=== PATIENT | female | born 1980 | race Caucasian/White ===

== ENCOUNTER 2020-11-18 11:00 | Outpatient (RCR) | payer OTHER, SELFPAY ==
[2020-09-09 12:38] VITALS: BMI 24.7
[2020-09-09 12:41] VITALS: BMI 24.7
[2020-11-18 11:08] VITALS: BMI 24.7
== END 2020-11-30 10:27 | disposition home or self-care (01) ==
LOC: ANHDMC 11:00
PROVIDERS: PCP Emergency Medicine; Visit Provider Emergency Medicine
DX: E11.9 Type 2 diabetes mellitus without complications (principal); Z71.3 Dietary counseling and surveillance; Z71.89 Other specified counseling
CPT/HCPCS: 97802; 97803; G0108

== ENCOUNTER 2022-04-06 08:15 | Outpatient (CLI) | payer OTHER, SELFPAY ==
--- NOTE | ~2022-04-06 | US_ITS ---
Ultrasound of the Abdominal Aorta INDICATION: Circulatory system disease, aortic aneurysm TECHNIQUE: Grayscale, color Doppler, and pulsed Doppler images of the aorta and common iliac arteries were obtained. COMPARISON: None FINDINGS: Maximum vascular dimensions are as follows: Proximal aorta: 2.0 cm Mid aorta: 1.5 cm Distal aorta: 1.5 cm Right common iliac artery: 1.0 cm Left common iliac artery: 0.8 cm There is no evidence of abdominal aortic aneurysm. IMPRESSION: No abdominal aortic aneurysm. Reviewed, dictated and finalized at location [facility]
== END 2022-04-06 08:16 | disposition home or self-care (01) ==
PROVIDERS: PCP Emergency Medicine; Visit Provider Emergency Medicine
DX: I71.40 Abdominal aortic aneurysm, without rupture, unspecified (principal); Z82.49 Family history of ischemic heart disease and other diseases of the circulatory system
CPT/HCPCS: 76775

== ENCOUNTER 2022-06-02 02:41 | Day surgery (SDC) | payer OTHER, SELFPAY ==
[2022-05-18 14:51] VITALS: BMI 25.1
[2022-06-02 09:04] VITALS: BP 151/102; PULSE 92; RESP 18; TEMP 36.4; O2SAT 100
[2022-06-02] MEDS: LACTATED RINGERS 1,000 ML 150 ML IV CONT (09:17)
[2022-06-02 09:19] LABS: Glucose Point of Care 122 mg/dl (65-105)
--- NOTE | 2022-06-02 09:42 | WPDANESEPPF ---
Anes - Initial Pre Proc Eval Procedure: Operation Date: 06/02/22 10:00 Proposed Procedures p Esophagogastroduodenoscopy & Colonoscopy - Vel Siegel MD Date/Time: 06/02/22 09:42 Surgeon: Vel Siegel MD Pre Op Diagnosis: GERD, IBS Patient Data Age: 41 Gender: F Height: 1.7 m Weight: 74.3 kg Last Vital Signs Temp 97.5 F L 06/02/22 09:04 Pulse 92 06/02/22 09:04 Resp 18 06/02/22 09:04 BP 151/102 H 06/02/22 09:04 Pulse Ox 100 06/02/22 09:04 O2 Del Method Room Air 06/02/22 09:04 Allergies Allergy/AdvReac Type Severity Reaction Status Date / Time latex Allergy Unknown Rash Verified 06/02/22 09:03 Home Medications Medication Instructions Recorded Confirmed Type cyclosporine 0.05 % eye drops in a 1 drp EACH EYE Q12H 07/28/20 05/18/22 History dropperette (Restasis) duloxetine 60 mg capsule,delayed 60 mg PO DAILY 07/28/20 05/18/22 History release hydroxychloroquine 200 mg tablet 200 mg PO BID 07/28/20 05/18/22 History meloxicam 15 mg tablet 15 mg PO DAILY 07/28/20 05/18/22 History norethindrone acetate 1.5 1 tablet PO DAILY 07/28/20 05/18/22 History mg-ethinyl estradiol 30 mcg tablet (Junel) Lupavita Multivitamin 1 tablet PO DAILY 05/18/22 05/18/22 History belimumab 200 mg/mL subcutaneous 200 mg subcut WEEKLY 05/18/22 05/18/22 History auto-injector (Benlysta) cyclobenzaprine 10 mg tablet 10 mg PO TID PRN Muscle Spasm 05/18/22 05/18/22 History folic acid 1 mg tablet 1 mg PO DAILY 05/18/22 05/18/22 History metformin 850 mg tablet 850 mg PO BID 05/18/22 05/18/22 History Laboratory Tests 06/02/22 09:11 POC Capillary Glucose 122 mg/dl H mg/dl (65-105) Patient hx anesthesia problems: none Family hx anesthesia problems: none Results Review: All pre-operative results and documents have been reviewed as part of the pre-operative evaluation. [facility] Past Medical History Medical History (Updated 07/28/20 @ 18:03 by Hebert Barboza MD) Diabetes Fibromyalgia Lupus Surgical History Surgical History (Updated 07/28/20 @ 15:20 by Bibiana Woo CMA) History of delivery History of cholecystectomy History of wisdom tooth extraction Family History Family History (Updated 07/28/20 @ 15:21 by Bibiana Woo CMA) Mother Asthma Father Cerebrovascular accident Grandparent Diabetes mellitus Heart disease Other Family history of cardiovascular disease Family history of tuberculosis Social History Social History Smoking status: Never smoker Alcohol intake: current Alcohol use details: 1 drink monthly Substance use type: does not use Living arrangements: with family Spiritual care concerns: No Anes - Eval Final PreProcedure Day of Procedure 06/02/22 09:42 Patient weight: normal Heart: regular rate and rhythm Lungs: clear to auscultation Airway: Mallampati scale class II Neurological: alert and oriented Last oral intake: >/= 8 hours ASA classification: III Emergent: no Anesthetic plan: proceed Anesthesia type and monitoring: general GIVS and standard monitoring Results Review: All pre-operative results and documents have been reviewed as part of the pre-operative evaluation. Informed Consent: The patient's anesthetic plan and its attendant risks and benefits were discussed with the patient/family/POA. Questions were solicited and answers provided to the satisfaction of the patient/family/POA.
--- NOTE | 2022-06-02 09:44 | PM.HPGS ---
History of Present Illness History of Present Illness Consent: Risks, benefits, and alternatives have been discussed and questions answered. Patient agrees to proceed with procedure. Chief complaint: GERD, IBS Narrative: Diana High is a 41 year old female with chronic gerd on ppi, also ibs with alternating diarrhea constipation and abdominal discomfort, never had scopes Review of Systems Constitutional: Constitutional: Denies headache(s) and Denies weakness Eyes: Eyes: Denies blurry vision ENT: Reports Normal hearing present, Denies headache(s) and Denies neck pain Cardiovascular: Cardiovascular: Denies chest pain and Denies dyspnea Respiratory: Respiratory: Denies dyspnea Gastrointestinal: Gastrointestinal: Reports no additional gastrointestinal complaints Genitourinary: Genitourinary: Denies dysuria Musculoskeletal: Musculoskeletal: Denies neck pain Integumentary/Breasts: Skin/Breast: Denies dry skin Neurologic: Reports Normal hearing present, Denies headache(s) and Denies weakness Psychiatric: Psychiatric: Denies anxiety Endocrine: Endocrine: Denies change in body appearance Hematologic/Lymphatic: Hematologic/Lymphatic: Denies easy bleeding Allergic/Immunologic: Allergic/Immunologic: Denies urticaria PMFSH Past Medical History Medical History (Updated 06/02/22 @ 09:45 by Vel Siegel MD) Diabetes Fibromyalgia GERD (gastroesophageal reflux disease) IBS (irritable bowel syndrome) Lupus Surgical History Surgical History (Updated 07/28/20 @ 15:20 by Bibiana Woo [facility]) History of delivery History of cholecystectomy History of wisdom tooth extraction Family History Family History (Updated 07/28/20 @ 15:21 by Bibiana Woo [facility]) Mother Asthma Father Cerebrovascular accident Grandparent Diabetes mellitus Heart disease Other Family history of cardiovascular disease Family history of tuberculosis Social History Social History Smoking status: Never smoker Alcohol intake: current Alcohol use details: 1 drink monthly Substance use type: does not use Living arrangements: with family Spiritual care concerns: No Meds Home Medications and Allergies Home Medications Medication Instructions Recorded Confirmed Type cyclosporine 0.05 % eye drops in a 1 drp EACH EYE Q12H 07/28/20 05/18/22 History dropperette (Restasis) duloxetine 60 mg capsule,delayed 60 mg PO DAILY 07/28/20 05/18/22 History release hydroxychloroquine 200 mg tablet 200 mg PO BID 07/28/20 05/18/22 History meloxicam 15 mg tablet 15 mg PO DAILY 07/28/20 05/18/22 History norethindrone acetate 1.5 1 tablet PO DAILY 07/28/20 05/18/22 History mg-ethinyl estradiol 30 mcg tablet (Junel) Lupavita Multivitamin 1 tablet PO DAILY 05/18/22 05/18/22 History belimumab 200 mg/mL subcutaneous 200 mg subcut WEEKLY 05/18/22 05/18/22 History auto-injector (Benlysta) cyclobenzaprine 10 mg tablet 10 mg PO TID PRN Muscle Spasm 05/18/22 05/18/22 History folic acid 1 mg tablet 1 mg PO DAILY 05/18/22 05/18/22 History metformin 850 mg tablet 850 mg PO BID 05/18/22 05/18/22 History Allergies Allergy/AdvReac Type Severity Reaction Status Date / Time latex Allergy Unknown Rash Verified 06/02/22 09:03 Vital Signs Vital Signs - 24 hr 06/02/22 09:04 Temperature 97.5 F L Pulse Rate 92 Respiratory Rate 18 Blood Pressure 151/102 H Pulse Oximetry 100 Oxygen Delivery Room Air Exam Const: General: comfortable and no acute distress HENMT: Face/Nose/Sinus: Normal nares present Eyes: General: appearance normal, both eyes and all related structures Neck: Neck: no JVD Resp: Auscultation: clear to auscultation bilaterally Cardio: Rate: regular rate Rhythm: regular rhythm GI: Inspection: non-distended GI Palp: Yes Soft to palpation Skin: General skin exam: normal color Neuro: General: gait normal Speech: normal speech Extrem: General: norm
[2022-06-02] MEDS: BENZOCAINE (*SP) 60 ML SPRAY CAN (HURRICAINE) 1 SPRAY MUCOUS MEM (09:51)
--- NOTE | 2022-06-02 09:52 | SUR.OPER ---
EGD start 951 end 56 Colon start 1001 end 1011
[2022-06-02 10:19] VITALS: BP 142/95; PULSE 103; RESP 17; O2SAT 98
[2022-06-02 10:29] VITALS: BP 137/92; PULSE 93; RESP 20; O2SAT 93
[2022-06-02 10:39] VITALS: BP 133/94; PULSE 84; RESP 20; O2SAT 100
== END 2022-06-02 10:53 | disposition home or self-care (01) ==
PROVIDERS: PCP Emergency Medicine; Visit Provider Internal Medicine Gastroenterology
PROC: 0DJ08ZZ Inspection of Upper Intestinal Tract, Via Natural or Artificial Opening Endoscopic (ICD-10-PCS; CPT 43235; principal; 2022-06-02 10:00)
DX: Z12.11 Encounter for screening for malignant neoplasm of colon (principal); K58.9 Irritable bowel syndrome, unspecified; K21.9 Gastro-esophageal reflux disease without esophagitis; E11.9 Type 2 diabetes mellitus without complications; M79.7 Fibromyalgia; M32.9 Systemic lupus erythematosus, unspecified; Z79.84 Long term (current) use of oral hypoglycemic drugs
CPT/HCPCS: 45378; 43239; 82948; 88305; J2704; J7120

== ENCOUNTER 2024-05-15 07:14 | Outpatient (CLI) | payer OTHER, SELFPAY ==
--- NOTE | ~2024-05-15 | CT_ITS ---
CT ANGIOGRAM HEAD History: Family history of disease in the circulatory system. Technique: Axial noncontrast imaging of the brain was performed. Serial spiral axial images through t he head were then obtained during arterial phase IV injection of 100 cc of Omnipaque 350. 3-D postpro cessing and MIP images were then reconstructed on the remote workstation. Dose reduction technique wa s used on this scan by utilizing automated exposure control and iterative reconstruction technique. Page steve dose-length product (DLP) was 1051.52 mGy-cm. Findings: Axial noncontrast imaging of the brain is unremarkable. No acute infarct, internal hemorrha ge, or mass lesion seen. No mass effect or midline shift. Mata-white differentiation is intact. Ventr icles and subarachnoid spaces are unremarkable. Paranasal sinuses and mastoid air cells are clear. Ca lvarium intact. Distal vertebral arteries, basilar artery, and posterior cerebral arteries are patent. Distal interna l carotid arteries, middle cerebral arteries, and anterior cerebral arteries are patent. No large ves tiana occlusion or stenosis. No aneurysm. Impression: Unremarkable exam. Reviewed, dictated and finalized at location . [employer] Impression: Unremarkable exam.
--- OUTSIDE RECORDS SUMMARY | 2024-05-15 07:18 | XMS_ITS | Data Portability ---
Author Organization [place] [facility] Address [address] [place] [address] Care Team Providers Care Coyote Hunter Name Role Phone ANA HUTCHINS Referring Provider Assessment Encounter Date Assessment Date Assessment LastModified by Organization Details LastModified Time 05/10/2015 05/10/2015 Patient has SLEand fibromyalgia. She also has snoring and does not sleep well. We will do a PSG to diagnose sleep apnea and possible periodic limb movement disorder. [email or web address] Not available 05/10/2015 13:20:41 Plan of Treatment Reminders Order Date Submit Date Provider Last Modified By Organization Details Last Modified Time Details Appointments None record ed. Lab None record ed. Referral None record ed. Procedures None record ed. Surgeries None record ed. Imaging None record ed. Medication Orders None record ed. Patient TargetsNo targets recorded. Patient Instructions Encounter Date Encounter Id Patient Instructions Last Modified By Organization Details Last Modified Time 05/10/2015 [id number] sleep study, polysomnogram with continuous positive airway pressure* [email or web address] Not available 05/28/2015 12:47:33 Reason for Referral None Reported. Problems Name Problem SNOMED Code Status Onset Date Resolution Date Notes Provider Name and Address Organization Details Recorded Time Obstructive sleep apnea of adult 2498007069957 Active Alycia galarza, [place] - [facility] 6 12:01:54 Problem Notes None recorded. Procedures Surgical History Date Name Laterality Status Provider Name and Address Organization Details Recorded Time 05/14/2015 Sleep Study completed Alycia Vazquez [place] - [facility] 05/15/2015 13:04:47 Imaging Results None recorded. Procedure Notes None recorded. Medical Equipment None Reported. Allergies No known drug allergies Medications Name Sig Start Date Stop Date Status Note LastModified by Organization Details LastModified Time cyclobenzaprine 10 mg tablet active Not Available Not Available No t Available promethazine-DM 6.25 mg-15 mg/5 mL oral syrup active Not Available Not Available N ot Available nystatin 100,000 unit/mL oral suspension active Not Available Not Available N ot Available ammonium lactate 12 % lotion active Not Available Not Available Not Available cefaclor 500 mg capsule active Not Available Not Available Not Available fluconazole 150 mg tablet active Not Available Not Available Not Available prednisone 20 mg tablet active Not Available Not Available Not Available spironolactone 100 mg tablet active Not Available Not Available No t Available sulfamethoxazole 800 mg-trimethoprim 160 mg tablet active Not Available Not Availabl e Not Available tramadol 50 mg tablet active Not Available Not Available Not Available meloxicam 7.5 mg tablet active Not Available Not Available Not Available methotrexate sodium 2.5 mg tablet active Not Available Not Availabl e Not Available cephalexin 500 mg capsule active Not Available Not Available Not Available hyoscyamine sulfate 0.125 mg tablet active Not Available Not Availa ble Not Available neomycin-polymyxin- dexameth 3.5 mg/mL-10,000 unit/mL-0.1% eye drops active Not Available Not Available Not Available gabapentin 300 mg capsule active Not Available Not Available Not Available hydroxychloroquine 200 mg tablet active Not Available Not Availabl e Not Available hydrocortisone 2.5 % topical ointment active Not Available Not Bettye ilable Not Available Microgestin Fe 1.5/30 (28) 1.5 mg-30 mcg (21)/75 mg (7) tablet active Not Available Not Availabl e Not Available Vitals Date Recorded Body weight Body height Body mass index (BMI) Oxygen saturation Oxygen saturation in Arterial blood by Pulse oximetry Respiratory rate Heart rate Systolic blood pressure Diastolic blood pressure Provider Name and Address Organization Details Last Updated DateTime 6 22571.7 029 g 172.72 cm 25.8 kg/m2 98 % 98 % 16 /min 98 /min 110 mm[Hg] 80 mm[Hg] JENNY WYATT MD, DABSM, F.C.C.P. NPI [id number] [facility] [address], [place], [address], [place] - [facility] 13:15:28 Date Recorded Body height Body mass index (BMI) Body weight Provider Name and Address Organization Details Last Updated DateTime 05/12/2015 172.72 cm 25.8 kg/m2 32229.7029 g Rose WhiteRj [facility] 05/12/2015 05:17:14 Social History Question Answer Notes LastModified by Organizat ion Details LastModified Time Tobacco Smoking Status Never Smoker JENNY WYATT MD, MUMTAZ, F.C.C.P. [address] [facility] [address], [place], [address], [facility] 05/10/2015 13:08:11 What Is Your Level Of Alcohol Consumption? None Information not available 05/10/2015 What Is Your Level Of Caffeine Consumption? Heavy Information not available 05/10/2015 Marital Status Informatio n not available 05/10/2015 How Many Children Do You Have? 2 Information not available 05/10/2015 Sex: Unknown Functional Status None recorded. Mental Status None recorded. Family History Nothing Reported. Medical History No medical history recorded. Gynecological HistoryNo gynecological history recorded. Obstetrics History GPAL:G 0 P 0 0 0 0 Past Encounters Encounter ID Performer Location Encounter Start Date Encounter Closed Date Diagnosis/Indication Diagnosis SNOMED-CT Code Diagnosis ICD10 Code Diagnosis Note [id number] JENNY WYATT MD, MUMTAZ F.C.C.P. [facility] [address] [facility] [address] [place] [address] 05/10/2015 11:40:08 05/10/2015 13:30:13 Obstructive sleep apnea of adult 6234483696 103 G47.33 [id number] JENNY WYATT MD, MUMTAZ, F.C.C.P. [facility] [phone] [facility] [address] [place] [address] 05/14/2015 21:06:45 05/15/2015 12:02:20 Obstructive sleep apnea of adult 6176130340 103 G47.33 Health Concerns Section Related Observation LastModified by Organization Detai ls LastModified Time None Recorded Concern Status LastModified by Organization Details LastModified Time None Recorded Advance Directives Directive None Recorded Payers Encounter Date Sequence Insurance Name Policy Number Policy Echols Covered Member ID Echols Member ID Guarantor Name 05/10/2015 1 [employer] - HFN (PPO) Diana Soteloo [id number] Diana Soteloo 05/14/2015 1 [employer] - HFN (PPO) Diana Soteloo [id number] Diana High Notes Date Note Type Note Provider Name and Address Organization Details Recorded Time 05/10/2015 text/html Sleep History-Reported bypatient.The patient presents with chief complaint ofsnoring It is stated thatshe goes to bed around 10.30 PM; usually falls asleep within 5 min The patient arises in the morning feelinggroggy; at approximately 6-7 AM; unrefreshed Awakening at nightoccurs due to; nocturia; approximately 1 per/night The patientdoes snore; Snoring is reported to be light Witnessed apneas, gasping for breathhave not been noted The patient iscurrently working as; During the day she is alert when active but sleepy and fatigued during quiet or boring activities The patient reports thatshe sometimes needs to fight to stay awake During quiet activities (e.g. reading, watching TV)the patient nods off; There is a history of napping; 1 naps per week are reported During drivingand has nodded off while driving; There have not been fall asleep accidents The [place] SleepinessScore is 7 (Normal is less than 10) The patientThe patient is awakens with morning headaches about 2 times per week There isno awakening with chest pain Therehave been problems with concentration memory difficulties Symptoms ofleg restlessness are not experienced The patient reportsno history of sleep paralysis hypnagogic hallucinations cataplexy Restless sleephas not been noted; and kicking at night has not been noted The patientdoes not consume alcohol The patientreports that she has never smoked cigarettes Weightgain is reported; 15lbs The patient reports that thereis not a family history of a sleep disorder. JENNY WYATT MD, DABSM, F.C.C.P. [address], [place], [address], [facility] 05/10/2015 13:21:18 OBGyn Episode No OBEpisode recorded.
--- OUTSIDE RECORDS SUMMARY | 2024-05-15 07:18 | XMS_ITS | Encounter Summary ---
Author Organization [facility] Address [address] [place] [address] Phone Care Team Providers Care Esthetic Dermatologist Name Role Phone oRger Claudio MD Primary Care Provider [phone] Reyna Atwood MD Unavailable [phone] Roger Claudio MD Primary Care Provider + [phone] Encounter Details Date Type Department Care Team (Late st Contact Info) Description 02/26/2019 Orders Only [facility] Scanning, Provider Social History Tobacco Use Types Packs/Day Years Used Date Smoking Tobacco: Never Smokeless Tobacco: Never Alcohol Use Standard Drinks/Week Comments No 0 (1 standard drink = 0.6 oz pur e alcohol) Comments Unknown Sex and Gender Information Value Date Recorded Sex Assigned at Not on file 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 Gender Identity Not on file Sexual Orientation Not on file 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 file Not on file Not on file documented as of this encounter Plan of Treatment Not on file documented as of this encounter Procedures Procedure Name Priority Date/Time Associated Diagnosis Comments SCAN - LABS 02/26/2019 documented in this encounter Results * SCAN - LABS (02/26/2019) us Provider Scanning Final Result documented in this encounter Visit Diagnoses Not on filedocumented in this encounter Care Teams Esthetic Dermatologist Relationship Specialty Start Date End Date Roger Claudio MD PCP - General 10/25/16 07/09/23 Roger Claudio MD [address] [place] [address] PCP - General Family Medicine 07/10/23 Reyna Atwood MD [address] [place] [address] Referring Physician Gynecology 05/13/19 documented as of this encounter
--- OUTSIDE RECORDS SUMMARY | 2024-05-15 07:18 | XMS_ITS | Encounter Summary ---
Author Organization [facility] Address [address] [place] [address] Phone Care Team Providers Care Proof Coins Inspector Name Role Phone Roger Claudio MD Primary Care Provider + [phone] Reyna Atwood MD Unavailable [phone] Roger Claudoi MD Primary Care Provider + [phone] Encounter Details Date Type Department Care Team (Late st Contact Info) Description 09/26/2018 Orders Only [facility] Scanning, Provider Social History Tobacco Use Types Packs/Day Years Used Date Smoking Tobacco: Never Smokeless Tobacco: Never Alcohol Use Standard Drinks/Week Comments No 0 (1 standard drink = 0.6 oz pur e alcohol) Comments Unknown Sex and Gender Information Value Date Recorded Sex Assigned at Not on file 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 [employer] Gender Identity Not on file Sexual Orientation Not on file 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 file Not on file Not on file documented as of this encounter Plan of Treatment Not on file documented as of this encounter Procedures Procedure Name Priority Date/Time Associated Diagnosis Comments CARDIOLOGY DOCUMENT SCAN 09/26/2018 documented in this encounter Results * SCAN - CARDIOLOGY (09/26/2018) Anatomical Region Laterality Modality Other us Provider Scanning CV CARDIAC SERVICES PROCEDURES Final Result documented in this encounter Visit Diagnoses Not on filedocumented in this encounter Care Teams Proof Coins Inspector Relationship Specialty Start Date End Date Roger Claudio MD PCP - General 10/25/16 07/09/23 Roger Claudio MD [address] [place] [address] PCP - General Family Medicine 07/10/23 Reyna Atwood MD [address] [place] [address] Referring Physician Gynecology 05/13/19 documented as of this encounter
--- OUTSIDE RECORDS SUMMARY | 2024-05-15 07:19 | XMS_ITS | Clinical Summary ---
Author Organization [facility] Address [address] [place] [address] Care Team Providers Care Transformer Coil Winder Name Role Phone Roger Claudio MD Primary Care Provider [phone] Source Comments [facility],non-owned Affiliates and Associated Physician Practices is amultiple site organization consisting of ambulatory clinics and hospital sitesin [place], [place], [place] and [place]. This disclosure is being madepursuant to the Care Everywhere program and may not contain all information available regarding this patient. Last updated 17.[facility] Allergies Active Allergy Reactions Criticality Noted Date Comments Latex Urticaria Medium 10/27/2013 Methotrexate Other 06/29/2014 stomatitis Medications * Be aware that medications may not be up to date on this document. Alwaysverify current medications with the patient. Medication Sig Dispensed Refills Start Date End Date Status norethindone-ethinyl estradiol-FE (LOESTRIN 24 FE) 1-20 MG-MCG(24) tablet Take 1 Tab by mouth once daily. Active folic acid (FOLVITE) 1 MG tabletIndications:Britany pus (systemic lupus erythematosus) (HCC) Take 1 Tab by mouth once daily. 30 Tab 12 10/27/2013 Active MethylPREDNISolone (MEDROL, OZIEL,) 4 MG KITIndications:Pleur isy Use as directed 1 Kit 3 12/23/2013 Active meloxicam (MOBIC) 7.5 MG tabletIndications:Britany pus (systemic lupus erythematosus) (HCC) Take 1-2 Tabs by mouth once daily. for 7 days to treat flare ups of pain and inflammation Repeat as needed or call Dr Chua if not better 30 Tab 6 07/27/2014 Active hydroxychloroquine (PLAQUENIL) 200 MG tablet TAKE 1 TABLET BY MOUTH EVERY DAY 30 Tab 3 01/04/2015 Active amitriptyline (ELAVIL) 25 MG tabletIndications:He maturia, unspecified type TAKE 1 TABLET(25 MG) BY MOUTH EVERY NIGHT 05/05/2020 Active JUNEL 1.5 1.5-30 MG-MCG tabletIndications:He maturia, unspecified type Take 1 tablet by mouth once daily as directed. 05/21/2020 Active DULoxetine (CYMBALTA) 60 MG capsuleIndications:H ematuria, unspecified type Take 60 mg by mouth once daily 06/22/2020 Active RESTASIS 0.05 % ophthalmic suspensionIndication s:Hematuria, unspecified type INT 1 GTT IN OU BID UTD 02/23/2020 Active cyclobenzaprine (FLEXERIL) 10 MG tabletIndications:He maturia, unspecified type 05/07/2020 Active Active Problems Problem Noted Date Diagnosed Date Allergic rhinitis 12/29/2013 Overview (12/29/2013): 12/29/2013 Fernanda discussed Lupus (systemic lupus erythematosus) 10/27/2013 Overview (11/06/2013): Mild elevation of MGMT CONSULTANT Fibromyalgia 10/27/2013 High risk medications (not anticoagulants) long- term use 10/27/2013 Resolved Problems Problem Noted Date Diagnosed Date Resolved Date Diarrhea 10/27/2013 08/19/2014 Overview (10/27/2013): possible malabsoption but starte after gall bladder surgery... Worse on plaquenil Immunizations Name Administration Dates Next Due FLU VACCINE QUAD IIV4 PF ID 01/15/2016 INFLUENZA VACCINE, QUADR. (F LUZONE; FLULAVAL; FLUARIX; AFLURIA QUADRIVALENT; 6MO+), 0.5 ML (IIV4) 01/06/2021,01/05/2019,12/18/2017 TDAP (7yrs+) 12/18/2017 Family History Medical History Relation Name Comments Lupus Maternal Aunt Arthritis - Rheumatoid Maternal Uncle Asthma Mother Hypertension Mother Relation Name Status Comments Maternal Aunt Maternal Uncle Mother Social History Tobacco Use Types Packs/Day Years Used Date Smoking Tobacco: Never Smokeless Tobacco: Never Alcohol Use Standard Drinks/Week Comments Not Currently 0 (1 standard drink = 0.6 oz pur e alcohol) once monthly Sex and Gender Information Value Date Recorded Sex Assigned at Not on file Gender Identity Not on file Sexual Orientation Not on file Last Filed Vital Signs Vital Sign Reading Time Taken Comments Blood Pressure 136/89 07/22/2020 9:10 AM CDT Pulse 73 07/22/2020 9:10 AM CDT Temperature 36.1 C (96.9 F) 07/22/2020 9:10 AM CDT Respiratory Rate - - Oxygen Saturation 100% 07/22/2020 9:10 AM CDT Inhaled Oxygen Concentration - - Weight 77.3 kg (170 lb 8 oz) 07/22/2020 9:10 AM CDT Height 170.2 cm (5' 7 ) 07/22/2020 9:10 AM CDT Body Mass Index 26.7 07/22/2020 9:10 AM CDT Plan of Treatment Health Maintenance Due Date Last Done Comments COLOGUARD (AGES 45-75) - COLON CA SCREENING 1978 COLON MONITORING 1978 COLONOSCOPY - COLON CA SCREENING 1978 CT COLONOGRAPHY - COLON CA SCREENING 1978 Colorectal Cancer Screening 1978 FIT - COLON CA SCREENING 1978 FLEX SIG - COLON CA SCREENING 1978 LIPID TESTING 1978 MAMMOGRAM 1978 Opioid Medication Agreement - Annual 1978 PAP SMEAR 1978 HIV SCREENING 1993 HEPATITIS C SCREENING 10/26/1996 HEPATITIS B VACCINE (1 of 3 - 19+ 3-dose series) 1997 SCREENING FOR DIABETES 07/22/2020 5, 04/22/2014, 12/29/2013, Additional history exists COVID-19 VACCINE ( season) 2023 11/23/2020, 07/13/2020, 06/07/2020 INFLUENZA VACCINE (#1) 2023 , 01/02/2020, 01/05/2019, Additional history exists DEPRESSION SCREENING 04/09/2024 DTAP/TDAP/TD VACCINES (2 - Td or Tdap) 12/19/2027 12/18/2017 ZOSTER VACCINE (1 of 2) 2028 HIB VACCINE Aged Out No longer eligi ble based on patient's age to complete this topic HPV VACCINE Aged Out No longer eligi ble based on patient's age to complete this topic MENINGOCOCCAL (Group B) VACCINE Aged Out No longer eligible based on patient's age to complete this topic MENINGOCOCCAL VACCINE Aged Out No tori frederic eligible based on patient's age to complete this topic PNEUMOCOCCAL VACCINE Aged Out No long er eligible based on patient's age to complete this topic Procedures Procedure Name Priority Date/Time Associated Diagnosis Comments COMPREHENSIVE METABOLIC PANEL Routine 06/29/2014 10:11 AM CDT Lupus (systemic lupus erythematosus) (HCC) from Last 3 Months or Most Recently Relevant to Health Maintenance Results * (ABNORMAL) COMPREHENSIVE METABOLIC PANEL (06/29/2014 10:11 AM CDT) Glucose 146(H) 65 - 99 mg/dL [facility] ACCOUNT BILL BUN 11 6 - 20 mg/dL [facility] ACCOUNT BILL Creatinine 0.71 0.57 - 1.00 mg/dL [facility] ACCOUNT BILL eGFR by MDRD 111 >59 mL/min/1.7 3 [facility] ACCOUNT BILL eGFR by MDRD 128 >59 mL/min/1.7 3 [facility] ACCOUNT BILL BUN/Creatinine Ratio 15 8 - 20 [facility] ACCOUNT BILL Sodium 142 134 - 144 mmol/L [facility] ACCOUNT BILL Potassium 4.3 3.5 - 5.2 mmol/L [facility] ACCOUNT BILL Chloride 101 97 - 108 mmol/L [facility] ACCOUNT BILL CO2 24 18 - 29 mmol/L [facility] ACCOUNT BILL Calcium 9.3 8.7 - 10.2 mg/dL [facility] ACCOUNT BILL Protein Total 7.2 6.0 - 8.5 g/dL [facility] ACCOUNT BILL Albumin 4.6 3.5 - 5.5 g/dL [facility] ACCOUNT BILL Globulin Total 2.6 1.5 - 4.5 g/dL [facility] ACCOUNT BILL Albumin/Globulin Ratio 1.8 1.1 - 2.5 [facility] ACCOUNT BILL Bilirubin Total 0.2 0.0 - 1.2 mg/dL [facility] ACCOUNT BILL Alkaline Phosphatase 43 39 - 117 IU/L [facility] ACCOUNT BILL AST 9 0 - 40 IU/L [facility] ACCOUNT BILL ALT 8 0 - 32 IU/L [facility] ACCOUNT BILL Blood specimen (specimen) BLOOD SPECIMEN / Unknown 06/29/2014 10:11 AM CDT 06/29/2014 12:54 PM CDT Narrative Resulting Agency Comment [facility] [address] [id number] Khanh Chua MD LAB - CHEMISTRY [place] [facility] ACCOUNT BILL from Last 3 Months or Most Recently Relevant to Health Maintenance Care Teams Transformer Coil Winder Relationship Specialty Start Date End Date Roger Claudio MD [address] [place] [address] PCP - General Family Medicine 10/27/13
--- OUTSIDE RECORDS SUMMARY | 2024-05-15 07:19 | XMS_ITS | Referral Summary ---
Author Organization [facility] Address [address] [place] [address] Care Team Providers Care Kick Press Setter Name Role Phone Roger Claudio MD Primary Care Provider [phone] Source Comments [facility],non-owned Affiliates and Associated Physician Practices is amultiple site organization consisting of ambulatory clinics and hospital sitesin [place], [place], [place] and [place]. This disclosure is being madepursuant to the Care Everywhere program and may not contain all information available regarding this patient. Last updated 17.[facility] Allergies Active Allergy Reactions Criticality Noted Date [...] erythematosus) 10/27/2013 Overview (11/06/2013): Mild elevation of FLAVOR EXTRACTOR Fibromyalgia 10/27/2013 High risk medications (not anticoagulants) [...] 0.5 ML (IIV4) 01/06/2021,01/05/2019,12/18/2017 TDAP (7yrs+) 12/18/2017 Social History Tobacco Use Types Packs/Day Years [...] 07/22/2020 9:10 AM CDT Plan of Treatment Not on file Procedures Procedure Name Priority Date/Time Associated Diagnosis [...] PM CDT Narrative Resulting Agency Comment [facility] [address] [phone] Khanh Chua MD LAB - CHEMISTRY [facility] [place] [facility] Organization Address City/State/[facility] Co de Phone Number [facility] ACCOUNT BILL from Last 3 Months or Most Recently Relevant to Health Maintenance Care Teams Kick Press Setter Relationship Specialty Start Date End Date Roger Claudio MD [address] [place] [address] PCP - General Family Medicine 10/27/13
--- OUTSIDE RECORDS SUMMARY | 2024-05-15 07:19 | XMS_ITS | Patient Health Summary ---
Author Organization [facility] Address [address] [place] [address] Care Team Providers Care Supervisor Green End Department Name Role Phone Roger Claudio MD Primary Care Provider Note from [facility],non-owned Affiliates and Associated Physician Practices is amultiple site organization consisting of ambulatory clinics and hospital sitesin [place], [place], [place] and [place]. This disclosure is being madepursuant to the Care Everywhere program and may not contain all information available regarding this patient. Last updated 17.[facility] Allergies * Latex(Urticaria) -Medium Criticality * Methotrexate(Other) Medications * Be aware that medications may not be up to date on this document. Alwaysverify current medications with the patient. * norethindone-ethinyl estradiol-FE (LOESTRIN 24 FE) 1-20 MG-MCG(24) tablet Take 1 Tab by mouth once daily. * folic acid (FOLVITE) 1 MG tablet(Started 10/27/2013) Take 1 Tab by mouth once daily. 12 refills left * MethylPREDNISolone (MEDROL, OZIEL,) 4 MG KIT(Started 12/23/2013) Use as directed 3 refills left * meloxicam (MOBIC) 7.5 MG tablet(Started 07/27/2014) Take 1-2 Tabs by mouth once daily. for 7 days to treat flare ups of pain and inflammation Repeat asneeded or call Dr Chua if not better 6 refills left * hydroxychloroquine (PLAQUENIL) 200 MG tablet(Started 01/04/2015) TAKE 1 TABLET BY MOUTH EVERY DAY 3 refills left * amitriptyline (ELAVIL) 25 MG tablet(Started 05/05/2020) TAKE 1 TABLET(25 MG) BY MOUTH EVERY NIGHT * JUNEL .09/05 1.5-30 MG-MCG tablet(Started 05/21/2020) Take 1 tablet by mouth once daily as directed. * DULoxetine (CYMBALTA) 60 MG capsule(Started 06/22/2020) Take 60 mg by mouth once daily * RESTASIS 0.05 % ophthalmic suspension(Started 02/23/2020) INT 1 GTT IN OU BID UTD * cyclobenzaprine (FLEXERIL) 10 MG tablet(Started 05/07/2020) Active Problems Problem Noted Date Diagnosed Date Allergic rhinitis 12/29/2013 Lupus (systemic lupus erythematosus) 10/27/2013 Fibromyalgia 10/27/2013 High risk medications (not anticoagulants) long- term use 10/27/2013 Resolved Problems Problem Noted Date Diagnosed Date Resolved Date Diarrhea 10/27/2013 08/19/2014 Immunizations * FLU VACCINE QUAD IIV4 PF ID(Given 01/15/2016) * INFLUENZA VACCINE, QUADR. (FLUZONE; FLULAVAL; FLUARIX; AFLURIA QUADRIVALENT; 6MO+), 0.5 ML (IIV4)(Given 01/06/2021, 01/05/2019, 12/18/2017) * TDAP (7yrs+)(Given 12/18/2017) Social History Tobacco Use Types Packs/Day Years [...] Mass Index 26.7 07/22/2020 9:10 AM CDT Procedures * URINALYSIS AUTO - POINT OF CARE (AMB) SLU(Performed 07/22/2020) Performed for Hematuria, unspecified type * URINALYSIS W/MICROSCOPIC REFLEX TO CULTURE(Performed 07/22/2020) Performed for Hematuria, unspecified type * CULTURE URINE REFLEXED III(Performed 07/22/2020) Performed for Hematuria, unspecified type * C-REACTIVE PROTEIN(Performed 09/30/2014) Performed for Lupus (systemic lupus erythematosus) ([facility] * ERYTHROCYTE SEDIMENTATION RATE(Performed 09/30/2014) Performed for Lupus (systemic lupus erythematosus) ([facility]) * TSH(Performed 09/30/2014) Performed for Lupus (systemic lupus erythematosus) ([facility]) * URINALYSIS MICROSCOPIC ONLY REFLEXED(Performed 07/08/2014) * URINALYSIS NO MICROSCOPIC NO CULTURE(Performed 07/08/2014) * CULTURE URINE(Performed 07/08/2014) * URINALYSIS MICROSCOPIC ONLY REFLEXED(Performed 06/29/2014) Performed for Lupus (systemic lupus erythematosus) ([facility]) * URINALYSIS NO MICROSCOPIC NO CULTURE(Performed 06/29/2014) Performed for Lupus (systemic lupus erythematosus) ([facility]) * ERYTHROCYTE SEDIMENTATION RATE(Performed 06/29/2014) Performed for Lupus (systemic lupus erythematosus) ([facility]) * COMPREHENSIVE METABOLIC PANEL(Performed 06/29/2014) Performed for Lupus (systemic lupus erythematosus) ([facility]) * CBC W AUTO DIFFERENTIAL(Performed 06/29/2014) Performed for Lupus (systemic lupus erythematosus) ([facility]) * COMPREHENSIVE METABOLIC PANEL(Performed 04/22/2014) Performed for Stomatitis * CBC W AUTO DIFFERENTIAL(Performed 04/22/2014) Performed for Stomatitis * LIPASE BLOOD(Performed 12/29/2013) Performed for Pleurisy * COMPREHENSIVE METABOLIC PANEL(Performed 12/29/2013) Performed for High risk medications (not anticoagulants) long-term use * CBC W AUTO DIFFERENTIAL(Performed 12/29/2013) Performed for High risk medications (not anticoagulants) long-term use * DEAMIDATED GLIADIN AB IGA/IGG PANEL(Performed 10/27/2013) Performed for Diarrhea * TSH(Performed 10/27/2013) Performed for Diarrhea * VITAMIN B12(Performed 10/27/2013) Performed for Diarrhea * COMPREHENSIVE METABOLIC PANEL(Performed 10/27/2013) Performed for High risk medications (not anticoagulants) long-term use * CBC W AUTO DIFFERENTIAL(Performed 10/27/2013) Performed for High risk medications (not anticoagulants) long-term use * VITAMIN D 25-HYDROXY(Performed 10/27/2013) Performed for Diarrhea * LAB RESULTS ORDER(Performed 09/30/2013) Results * URINALYSIS AUTO - POINT OF CARE (AMB) SLU (07/22/2020) Glucose UA 2+ Bilirubin UA POCT neg Ketones UA POCT neg Specific [place] UA 1.015 Blood Urine POCT 2+ pH UA 5.5 Protein UA neg Urobilinogen UA neg Nitrite UA neg WBC UA neg Urine URINE / Unknown 07/22/2020 Ameena Guthrie APRN-RECRUITMENT SPECIALIST LAB - POINT O F CARE ORDERABLES * CULTURE URINE REFLEXED III (07/22/2020) Pathologist [facility] [place] Reflexive Urine Culture See Below [facility] Comment: NO CULTURE INDICATED Test Performed at: [facility] [employer] [id number] HAILEY MENDEZ MD 07/22/2020 07/22/2020 11: 15 PM CDT Ameena Guthrie APRN-RECRUITMENT SPECIALIST LAB - MICROBI OLOGY ORDERABLES [address] [address] * (ABNORMAL) URINALYSIS W/MICROSCOPIC REFLEX TO CULTURE (07/22/2020) Color UA YELLOW YELLOW [facility] Appearance CLOUDY(A) CLEAR [facility] Specific [place] UA 1.008 1.001 - 1.035 [facility] pH UA 5.5 5.0 - 8.0 [facility] Glucose UA 2+(A) NEGATIVE [facility] Bilirubin UA NEGATIVE NEGATIVE [facility] Ketone UA NEGATIVE NEGATIVE [facility] Blood UA 1+(A) NEGATIVE [facility] Protein UA NEGATIVE NEGATIVE [facility] Nitrite NEGATIVE NEGATIVE [facility] Leukocyte Esterase NEGATIVE NEGATIVE [facility] WBC UA 0-5 < OR = 5 /HPF [facility] RBC UA 0-2 < OR = 2 /HPF [facility] Epithelial Cell UA NONE SEEN < OR = 5 /HPF [facility] Bacteria UA NONE SEEN NONE SEEN /HPF [facility] Hyaline Casts NONE SEEN NONE SEEN /LPF [facility] Comment: Test Performed at: [facility] [address] [place] [address] HAILEY MENDEZ MD Urine URINE SPECIMEN OBTAINED BY CLEAN CATCH PROCEDURE / Unknown 07/22/2020 07/22/2020 11:15 PM CDT Ameena Guthrie PRINTING TABLE WORKER-RECRUITMENT SPECIALIST LAB - URINALY SIS ORDERABLES Performing Organization Address City/[facility] Co de Phone Number [address] [address] * (ABNORMAL) C-REACTIVE PROTEIN (09/30/2014 2:19 PM CDT) C-Reactive Protein 16.9(H) 0.0 - 4.9 mg/L [facility] ACCOUNT BILL Blood specimen (specimen) BLOOD SPECIMEN / Unknown 09/30/2014 2:19 PM CDT 09/30/2014 6:24 PM CDT Narrative Resulting Agency Comment [facility] [address] [facility] [id number] Khanh Chua MD LAB - CHEMISTRY [place] Performing Organization Address [facility] Co de Phone Number [facility] ACCOUNT BILL * SED RATE WESTERGREN (09/30/2014 2:19 PM CDT) Only the most recent of2 resultswithin the time period is included. Erythrocyte Sedimentation Rate Westergren 4 0 - 32 mm/hr [facility] ACCOUNT BILL Blood specimen (specimen) BLOOD SPECIMEN / Unknown 09/30/2014 2:19 PM CDT 09/30/2014 6:24 PM CDT Narrative Resulting Agency Comment [facility] [address] [facility] [phone] Khanh Chua MD LAB - HEMATOLOGY ORD ERABLES [facility] ACCOUNT BILL * TSH (09/30/2014 2:19 PM CDT) Only the most recent of2 resultswithin the time period is included. TSH 1.330 0.450 - 4.500 uIU/mL [facility] ACCOUNT BILL Blood specimen (specimen) BLOOD SPECIMEN / Unknown 09/30/2014 2:19 PM CDT 09/30/2014 6:24 PM CDT Narrative Resulting Agency Comment [facility] [address] [facility] [id number] Khanh Chua MD LAB - CHEMISTRY [place] [facility] ACCOUNT BILL * (ABNORMAL) URINALYSIS MICROSCOPIC ONLY REFLEXED (PO REF LAB) (07/08/2014 2:30 PM CDT) Only the most recent of2 resultswithin the time period is included. WBC UA 0-5 0 - 5 /hpf [facility] ACCOUNT BILL RBC UA 0-2 0 - 2 /hpf [facility] ACCOUNT BILL Epithelial Cells (non renal) 0-10 0 - 10 /hpf [facility] ACCOUNT BILL Epithelial Cells (renal) NOT NEEDED [facility] ACCOUNT BILL Comment:Ancillary determined the test is not needed Casts ua NOT NEEDED [facility] ACCOUNT BILL Comment:Ancillary determined the test is not needed Casts UA NOT NEEDED [facility] ACCOUNT BILL Comment:Ancillary determined the test is not needed Crystals UA Present(A) N/A [facility] ACCOUNT BILL Crystals UA Calcium Oxalate N/A [facility] ACCOUNT BILL Mucus UA Present Not Estab. [facility] ACCOUNT BILL Bacteria UA Few None seen/Few [facility] ACCOUNT BILL Yeast UA NOT NEEDED [facility] ACCOUNT BILL Comment:Ancillary determined the test is not needed Trichomonas UA NOT NEEDED [facility] ACCOUNT BILL Comment:Ancillary determined the test is not needed Comment Urine NOT NEEDED [facility] ACCOUNT BILL Comment:Ancillary determined the test is not needed 07/08/2014 2:30 PM CDT 07/08/2014 6:11 PM CDT Narrative Resulting Agency Comment [facility] [address] [facility] [id number] Khanh Chua MD LAB - URINALYSIS ORD ERABLES Performing Organization Address [facility] Co de Phone Number [facility] ACCOUNT BILL * (ABNORMAL) URINALYSIS DIPSTICK AUTO (07/08/2014 2:30 PM CDT) Only the most recent of2 resultswithin the time period is included. Specific [place] UA 1.028 1.005 - 1.030 [facility] ACCOUNT BILL pH UA 6.0 5.0 - 7.5 [facility] ACCOUNT BILL Color UA Yellow Yellow [facility] ACCOUNT BILL Appearance Clear Clear [facility] ACCOUNT BILL Leukocyte UA Negative Negative [facility] ACCOUNT BILL Protein UA Trace Negative/Tra ce [facility] ACCOUNT BILL Glucose UA Negative Negative [facility] ACCOUNT BILL Glucose Reflex NOT NEEDED [facility] ACCOUNT BILL Comment:Ancillary determined the test is not needed Ketone UA Negative Negative [facility] ACCOUNT BILL Occult Blood Urine Trace(A) Negative [facility] ACCOUNT BILL Bilirubin UA Negative Negative [facility] ACCOUNT BILL Urobilinogen 0.2 0.0 - 1.9 mg/dL [facility] ACCOUNT BILL Nitrite UA Negative Negative [facility] ACCOUNT BILL Microscopic Examination Urine See below: [facility] ACCOUNT BILL Comment:Microscopic was jaspreet cated and was performed. 07/08/2014 2:30 PM CDT 07/08/2014 6:11 PM CDT Narrative Resulting Agency Comment [facility] [address] [facility] [id number] Khanh Chua MD LAB - URINALYSIS ORD ERABLES Performing Organization Address [facility] Co de Phone Number [facility] ACCOUNT BILL * (ABNORMAL) CULTURE URINE (07/08/2014 2:30 PM CDT) Urine Culture Routine Final report(A) [facility] ACCOUNT BILL Result 1 (A) [facility] ACCOUNT BILL Comment: Coagulase negative Staphylococcus species, not Staphylococcus saprophyticus. 25,000-50,000 colony forming units per mL Based on resistance to penicillin and susceptibility to oxacillin this isolate would be susceptible to: * Penicillinase-stable penicillins; such as: Cloxacillin Dicloxacillin Nafcillin * Beta-lactam/beta-lactamase inhibitor combinations; such as: Amoxicillin-clavulanic acid Ampicillin-sulbactam * Antistaphylococcal cephems; such as: Cefaclor Cefuroxime * Antistaphylococcal carbapenems; such as: Imipenem Meropenem Antimicrobial Susceptibility [facility] ACCOUNT BILL Comment: S = Susceptible; I = Intermediate; R = Resistant P = Positive; N = Negative MICS are expressed in micrograms per mL Antibiotic RSLT#1 RSLT#2 RSLT#3 RSLT#4 Ciprofloxacin R Gentamicin S Levofloxacin R Nitrofurantoin S Oxacillin S Penicillin R Rifampin S Tetracycline S Trimethoprim/Sulfa R Vancomycin S URINE / Unknown 07/08/2014 2 :30 PM CDT 07/08/2014 6:11 PM CDT Narrative Resulting Agency Comment [facility] [address] [phone] Khanh Chua MD LAB - MICROBIOLOGY O RDERABLES [facility] ACCOUNT BILL * (ABNORMAL) CBC W AUTO DIFFERENTIAL (06/29/2014 10:11 AM CDT) Only the most recent of4 resultswithin the time period is included. WBC 7.3 3.4 - 10.8 x10E3/uL [facility] ACCOUNT BILL RBC 4.97 3.77 - 5.28 x10E6/uL [facility] ACCOUNT BILL Hemoglobin 13.1 11.1 - 15.9 g/dL [facility] ACCOUNT BILL Hematocrit 40.3 34.0 - 46.6 % [facility] ACCOUNT BILL MCV 81 79 - 97 fL [facility] ACCOUNT BILL MCH 26.4(L) 26.6 - 33.0 pg [facility] ACCOUNT BILL MCHC 32.5 31.5 - 35.7 g/dL [facility] ACCOUNT BILL RDW 13.3 12.3 - 15.4 % [facility] ACCOUNT BILL Platelet Count 279 150 - 379 x10E3/uL [facility] ACCOUNT BILL Granulocytes % 67 % [facility] ACCOUNT BILL Lymphocytes % 26 % [facility] ACCOUNT BILL Monocytes % 5 % [facility] ACCOUNT BILL Eosinophils % 2 % [facility] ACCOUNT BILL Basophils % 0 % [facility] ACCOUNT BILL Immature Cells NOT NEEDED [facility] ACCOUNT BILL Comment:Ancillary determined the test is not needed Granulocytes Absolute 4.9 1.4 - 7.0 x10E3/uL [facility] ACCOUNT BILL Lymphocytes Absolute 1.9 0.7 - 3.1 x10E3/uL [facility] ACCOUNT BILL Monocytes Absolute 0.4 0.1 - 0.9 x10E3/uL [facility] ACCOUNT BILL Eosinophils Absolute 0.1 0.0 - 0.4 x10E3/uL [facility] ACCOUNT BILL Basophils Absolute 0.0 0.0 - 0.2 x10E3/uL [facility] ACCOUNT BILL Immature Granulocytes 0 % [facility] ACCOUNT BILL Immature Granulocytes Absolute 0.0 0.0 - 0.1 x10E3/uL [facility] ACCOUNT BILL nRBC NOT NEEDED [facility] ACCOUNT BILL Comment:Ancillary determined the test is not needed Comment Hematology NOT NEEDED [facility] ACCOUNT BILL Comment:Ancillary determined the test is not needed Blood specimen (specimen) BLOOD SPECIMEN / Unknown 06/29/2014 10:11 AM CDT 06/29/2014 12:54 PM CDT Narrative Resulting Agency Comment [facility] [address] [phone] Khanh Chua MD LAB - HEMATOLOGY ORD ERABLES [facility] ACCOUNT BILL * (ABNORMAL) COMPREHENSIVE METABOLIC PANEL (06/29/2014 10:11 AM CDT) Only the most recent of4 resultswithin the time period is included. Glucose 146(H) 65 - 99 mg/dL [facility] [...] 12:54 PM CDT Narrative Resulting Agency Comment [facility] [phone] Khanh Chua MD LAB - CHEMISTRY ORDNew RAGSDALE [facility] ACCOUNT BILL * LIPASE BLOOD (12/29/2013 10:13 AM CDT) Pathologist [facility] Lipase 31 0 - 59 U/L [facility] INSURANCE BILL Blood specimen (specimen) BLOOD SPECIMEN / Unknown 12/29/2013 10:13 AM CDT 12/29/2013 12:47 PM CDT Narrative Resulting Agency Comment [facility] [phone] Khanh Chua MD LAB - CHEMISTRY ORDNew RAGSDALE [facility] INSURANCE BILL * GLIADIN ANTIBODY IGA IGG PANEL (10/27/2013 2:45 PM CDT) Antigliadin Antibody IgA 5 0 - 19 units [facility] ACCOUNT BILL Comment: Negative 0 - 19 Weak Positive 20 - 30 Moderate to Strong Positive >30 Gliadin Deamidated Antibody IgG 4 0 - 19 units [facility] ACCOUNT BILL Comment: Negative 0 - 19 Weak Positive 20 - 30 Moderate to Strong Positive >30 Blood specimen (specimen) BLOOD SPECIMEN / Unknown 10/27/2013 2:45 PM CDT 10/27/2013 7:26 PM CDT Narrative Resulting Agency Comment [facility] [address] [id number] Khanh Chua MD LAB - SEROLOGY ORDER WALDEMAR [facility] ACCOUNT BILL * (ABNORMAL) VITAMIN D 25-HYDROXY (10/27/2013 2:45 PM CDT) Vitamin D, 25 Hydroxy 19.1(L) 30.0 - 100.0 ng/mL [facility] ACCOUNT BILL Comment: Vitamin D deficiency has been defined by the [place] of Medicine and an Endocrine Society practice guideline as a level of serum 25-OH vitamin D less than 20 ng/mL (1,2). The Endocrine Society went on to further define vitamin D insufficiency as a level between 21 and 29 ng/mL (2). 1. IOM ([place] of [employer]). 2010. Dietary reference intakes for calcium and D. [place]: The National Academies Press. 2. Arnie MF, Mariel NC, Iesha NAJERA, et al. Evaluation, treatment, and prevention of vitamin D deficiency: an Endocrine Society clinical practice guideline. JCEM. 2010; 96(7):1911-30. Blood specimen (specimen) BLOOD SPECIMEN / Unknown 10/27/2013 2:45 PM CDT 10/27/2013 7:26 PM CDT Narrative Resulting Agency Comment [facility] [address] [phone] Khanh Chua MD LAB - CHEMISTRY LIEN [place] [facility] ACCOUNT BILL * VITAMIN B12 (10/27/2013 2:45 PM CDT) Vitamin B12 342 211 - 946 pg/mL [facility] ACCOUNT BILL Blood specimen (specimen) BLOOD SPECIMEN / Unknown 10/27/2013 2:45 PM CDT 10/27/2013 7:26 PM CDT Narrative Resulting Agency Comment [facility] [address] [phone] Khanh Chua MD LAB - CHEMISTRY [place]EN [place] [facility] Organization Address City/State/ZIP Co de Phone Number [facility] ACCOUNT BILL * LAB RESULTS ORDER (09/30/2013) Khanh Chua MD LAB - THERAPEUTIC DR MILLER MONITORING ORDERABLES Care Teams Supervisor Green End Department Relationship Specialty Start Date End Date Roger Claudio MD [address] [facility] [address] [place] [address] PCP - General Family Medicine 10/27/13"
--- OUTSIDE RECORDS SUMMARY | 2024-05-15 07:19 | XMS_ITS | Referral Summary ---
Author Organization [facility] Address [address] [place] [address] Care Team Providers Care Sales Vendor Name Role Phone Reyna Atwood MD Unavailable [phone] Roger Claudio MD Primary Care Provider Encounters Date Type Department Care Team Description 03/03/2024 Telephone [facility] Rheumatology [address] [place] [address] Advanced Medicine 5th [place] [phone] Neto Andrew MD 02/29/2024 Orders Only [facility] Rheumatology [address] [place] [address] 5th [place] [phone] Neto Andrew MD Other systemic lupus erythematosus with other organ involvement (HCC) (Primary Dx) 02/29/2024 3:05 PM LIVE STUDY MANAGER Lab [facility] [address] [place] [phone] Other systemic lupus erythematosus with other organ involvement (HCC) 02/29/2024 Orders Only [facility] Rheumatology [address] [place] [address] [place] [phone] Anshul Lamas LPN 02/29/2024 10:45 AM LIVE STUDY MANAGER Office Visit [facility] Rheumatology [address] [place] [address] 5th [place] [phone] Neto Andrew MD Sleep apnea, unspecified type (Primary Dx); Other systemic lupus erythematosus with other organ involvement (HCC) 02/14/2024 Telephone [facility] Scheduling [address] [place] [address] Ramone Nair MD from Last 3 Months Allergies Active Allergy Reactions Criticality Noted Date Comments Latex Swelling Medium 03/17/2015 RASH Medications cyclobenzaprine (FLEXERIL) 10 mg tabletIndications: Muscle Spasm Take 1 tablet (10 mg total) by mouth nightly as needed for muscle spasms 30 tablet 3 02/19/[address] (CYMBALTA) 60 mg capsule Take 1 capsule (60 mg total) by mouth daily 06/23/19 21 Active Aurovela 1.5/30, 21, 1.5-30 mg-mcg tablet per tablet TAKE 1 TABLET BY MOUTH EVERY DAY CONTINUOUSLY 08/27/19 22 Active blood glucose diagnostic (OneTouch Verio test strips) strip check once per day 03/27/20 22 Active OneTouch Verio test strips strip 05/15/[address] (PROTONIX) 40 mg EC tablet Take 1 tablet (40 mg total) by mouth daily 04/21/19 23 Active FreeStyle Julito 2 Sensor kit CHANGE SENSOR EVERY 14 DAYS 08/04/19 23 Active Ozempic 0.25 mg or 0.5 mg (2 mg/3 mL) pen injector injection INJECT 0.5 MG UNDER SKIN EVERY WEEK 08/22/19 23 Active amitriptyline (ELAVIL) 25 mg tablet TAKE 1 TABLET(25 MG) BY MOUTH EVERY NIGHT 30 tablet 11/07/19 23 Active Additional Information Patient not taking.Reported on 03/06/2023 Dexcom G7 Sensor device CHANGE SENSOR EVERY 10 DAYS Active Ozempic 1 mg/dose (4 mg/3 mL) pen injector injection INJECT 1 MG UNDER SKIN EVERY WEEK 07/23/19 24 Active lisinopriL (PRINIVIL,ZESTRIL) 5 mg tablet Take 1 tablet (5 mg total) by mouth daily Active ondansetron ODT (ZOFRAN-ODT) 4 mg disintegrating tablet DISSOLVE 1 TABLET ON TOP OF TONGUE EVERY 8 HOURS NEEDED 01/24/20 24 Active belimumab (Benlysta) auto-injector Inject 1 mL (200 mg total) under the skin once a week 4 mL 5 02/29/20 24 Active hydroxychloroquine (PLAQUENIL) 200 mg tabletIndications: Systemic Lupus Erythematosus Take 1 tablet (200 mg total) by mouth 2 (two) times a day 180 tablet 1 02/29/20 24 025 Active meloxicam (MOBIC) 15 mg tablet Take 1 tablet (15 mg total) by mouth daily as needed for pain (for joint pain) 90 tablet 3 04/14/19 25 026 Active Active Problems Problem Noted Date Diagnosed Date Depression 05/14/2018 CHAD (obstructive sleep apnea) 04/24/2018 Long-term use of Plaquenil 04/24/2018 Fatigue 07/10/2017 Snoring 07/10/2017 Restless sleeper 07/10/2017 High risk medications (not anticoagulants) long- term use 05/31/2016 Insomnia 03/17/2015 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 Chronic pain syndrome 03/17/2015 Systemic lupus erythematosus (CMS/HCC) 5 Allergic rhinitis 12/29/2013 Overview (09/10/2021): 12/29/2013 Fernanda discussed Multiple joint pain 06/13/2013 Nausea and vomiting 06/13/2013 Viral disease 06/13/2013 Disorder of gallbladder 05/07/2013 Abnormal blood chemistry level 04/04/2013 Blood in urine 04/04/2013 Hyperlipidemia 04/04/2013 Abdominal pain 03/12/2013 Chronic ischemic colitis, enteritis, or enteroco litis 03/12/2013 Low back pain 10/23/2012 Non-neoplastic nevus 10/23/2012 Acute conjunctivitis 05/16/2012 Acute maxillary sinusitis 05/08/2012 Resolved Problems Problem Noted Date Diagnosed Date Resolved Date Fibromyalgia 10/27/2013 04/24/2018 Social History Tobacco Use Types Packs/Day Years Used Date Smoking Tobacco: Never Smokeless Tobacco: Never Tobacco Cessation:Counseling Given: Not Answered Alcohol Use Standard Drinks/Week Comments No 0 (1 standard drink = 0.6 oz pur e alcohol) Comments Unknown Sex and Gender Information Value Date Recorded Sex Assigned at Not on file Legal Sex Female 3:07 AM LIVE STUDY MANAGER Gender Identity Not on file Sexual Orientation Not on file 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 file Not on file Not on file Last Filed Vital Signs Vital Sign Reading Time Taken Comments Blood Pressure 130/74 02/29/2024 10:59 AM LIVE STUDY MANAGER Pulse 86 02/29/2024 10:59 AM LIVE STUDY MANAGER Temperature 36.5 C (97.7 F) 02/29/2024 10:59 AM LIVE STUDY MANAGER Respiratory Rate 16 03/07/2023 3:41 PM LIVE STUDY MANAGER Oxygen Saturation 99% 03/07/2023 3:41 PM LIVE STUDY MANAGER Inhaled Oxygen Concentration - - Weight 71.7 kg (158 lb) 02/29/2024 10:59 AM LIVE STUDY MANAGER Height 172.7 cm (5' 8 ) 02/29/2024 10:59 AM LIVE STUDY MANAGER Body Mass Index 24.02 02/29/2024 10:59 AM LIVE STUDY MANAGER Plan of Treatment Not on file Procedures Procedure Name Priority Date/Time Associated Diagnosis Comments EGFR Routine 02/29/2024 12:40 PM LIVE STUDY MANAGER Other systemic lupus erythematosus with other organ involvement (HCC) DIFFERENTIAL AUTO Routine 02/29/2024 12:40 PM LIVE STUDY MANAGER Other systemic lupus erythematosus with other organ involvement (HCC) ANTI-DOUBLE STRANDED DNA ANTIBODIES Routine 02/29/2024 12:40 PM LIVE STUDY MANAGER Other systemic lupus erythematosus with other organ involvement (HCC) C3 COMPLEMENT Routine 02/29/2024 12:40 PM LIVE STUDY MANAGER Other systemic lupus erythematosus with other organ involvement (HCC) C4 COMPLEMENT Routine 02/29/2024 12:40 PM LIVE STUDY MANAGER Other systemic lupus erythematosus with other organ involvement (HCC) CBC WITH AUTO DIFFERENTIAL Routine 02/29/2024 12:40 PM LIVE STUDY MANAGER Other systemic lupus erythematosus with other organ involvement (HCC) COMPREHENSIVE METABOLIC PANEL Routine 02/29/2024 12:40 PM LIVE STUDY MANAGER Other systemic lupus erythematosus with other organ involvement (HCC) CRP (ACUTE PHASE) Routine 02/29/2024 12:40 PM LIVE STUDY MANAGER Other systemic lupus erythematosus with other organ involvement (HCC) HEPATITIS C ANTIBODY Routine 11/23/2023 9:19 AM CDT High risk medications (not anticoagulants) long-term use Other systemic lupus erythematosus with other organ involvement (HCC) DIAGNOSTIC MAMMOGRAM BILATERAL W THANH Schedule Routine, Read Routine (OP Routine) 07/10/2023 10:37 AM CDT Follow-up exam, more than 1 year since previous exam from Last 3 Months or Most Recently Relevant to Health Maintenance Results * Anti-double stranded DNA abs (02/29/2024 12:40 PM LIVE STUDY MANAGER) dsDNA Ab <1.0 <=4.0 IUnits/mL Comment: Interpretive Data Negative: < or = 4 IUnits/mL Indeterminate: 5 - 9 IUnits/mL Positive: > or = 10 IUnits/mL Current interpretive data was last revised on 2016. Blood 02/29/2024 12:4 0 PM LIVE STUDY MANAGER 02/29/2024 1:06 PM LIVE STUDY MANAGER eNto Andrew MD LAB BLOOD ORDERABLES Final Result [facility] [place] [address] * eGFR (02/29/2024 12:40 PM LIVE STUDY MANAGER) eGFR >90 >=60 mL/min/1. 73 m2 Comment: Interpretive Data Reference Interval Normal >/= 90 mL/min/1.73m2 Mildly decreased* 60 - 89 mL/min/1.73m2 Mildly to moderately decreased 45 - 59 mL/min/1.73m2 Moderately to severely decreased 30 - 44 mL/min/1.73m2 Severely decreased 15 - 29 mL/min/1.73m2 Kidney Failure < 15 mL/min/1.73m2 *Relative to young adult level Estimated glomerular filtration rate is determined by the 2020 CKD-EPI equation recommended by the National Kidney Foundation (A Unifying Approach to GFR Estimation: Recommendations of the NKF-ASK Task Force on Reassessing the Inclusion of Race in Diagnosing Kidney Disease, PAUL 2020). The CKD-EPI equation should not be used for patients with unstable renal function and has not been validated in children and those over 70. Current interpretive data was last reviewed 2021. Blood 02/29/2024 12:4 0 PM LIVE STUDY MANAGER 02/29/2024 1:16 PM LIVE STUDY MANAGER Neto Andrew MD LAB BLOOD ORDERABLES Final Result [facility] [place] [address] * Differential, auto (02/29/2024 12:40 PM LIVE STUDY MANAGER) Neutrophil abs 6.1 1.5 - 6.5 K/cumm Imm gran abs 0.0 0.0 - 0.1 K/cumm [facility] Lymphocyte abs 2.3 0.8 - 3.3 K/cumm [facility] Monocyte abs 0.6 0.2 - 0.8 K/cumm [facility] Eosinophil abs 0.1 0.0 - 0.5 K/cumm [facility] Basophil abs 0.0 0.0 - 0.1 K/cumm [facility] Neutrophil pct 66.5 % [facility] Comment: Interpretive Data Percent cell count reference ranges are not reported, since discordance with absolute values may lead to misinterpretation of CBC data. Current Interpretive Data was last revised on 2017. Imm gran pct 0.4 % [facility] Comment: Interpretive Data Percent cell count reference ranges are not reported, since discordance with absolute values may lead to misinterpretation of CBC data. Current Interpretive Data was last revised on 2017. Lymphocyte pct 25.4 % [facility] Comment: Interpretive Data Percent cell count reference ranges are not reported, since discordance with absolute values may lead to misinterpretation of CBC data. Current Interpretive Data was last revised on 2017. Monocyte pct 6.1 % [facility] Comment: Interpretive Data Percent cell count reference ranges are not reported, since discordance with absolute values may lead to misinterpretation of CBC data. Current Interpretive Data was last revised on 2017. Eosinophil pct 1.3 % [facility] Comment: Interpretive Data Percent cell count reference ranges are not reported, since discordance with absolute values may lead to misinterpretation of CBC data. Current Interpretive Data was last revised on 2017. Basophil pct 0.3 % [facility] Comment: Interpretive Data Percent cell count reference ranges are not reported, since discordance with absolute values may lead to misinterpretation of CBC data. Current Interpretive Data was last revised on 2017. Blood 02/29/2024 12:4 0 PM LIVE STUDY MANAGER 02/29/2024 1:06 PM LIVE STUDY MANAGER Neto Andrew MD LAB BLOOD ORDERABLES Final Result Performing Organization Address City/[facility] Co de Phone Number [facility] [place] [place] [address] * C4 complement (02/29/2024 12:40 PM LIVE STUDY MANAGER) [facility] Complement C4 20.7 10.0 - 40.0 mg/dL Blood 02/29/2024 12:4 0 PM LIVE STUDY MANAGER 02/29/2024 1:06 PM LIVE STUDY MANAGER Neto Andrew MD LAB BLOOD ORDERABLES Final Result Performing Organization Address [facility] Co de Phone Number [facility] [place] [address] * (ABNORMAL) CBC with auto differential (02/29/2024 12:40 PM LIVE STUDY MANAGER) Pathologist [facility] WBC 9.1 3.8 - 9.9 K/cumm Hgb 13.6 11.9 - 15.5 g/dL [facility] Hct 42.0 35.6 - 45.5 % [facility] Plt 334 150 - 400 K/cumm [facility] MPV 10.2 9.1 - 12.3 fL [facility] RBC 5.15 3.90 - 5.20 M/cumm [facility] MCV 81.6 81.3 - 96.4 fL [facility] MCH 26.4(L) 27.1 - 33.3 pg [facility] MCHC 32.4 32.3 - 35.7 g/dL [facility] RDW CV 12.9 11.1 - 14.9 % [facility] RDW SD 38.6 35.7 - 48.1 fL [facility] NRBC abs 0.00 0.00 - 0.01 K/cumm [facility] Blood 02/29/2024 12:4 0 PM LIVE STUDY MANAGER 02/29/2024 1:06 PM LIVE STUDY MANAGER Neto Andrew MD LAB BLOOD ORDERABLES Final Result Performing Organization Address [facility] Co de Phone Number [facility] [place] [address] * C3 complement (02/29/2024 12:40 PM LIVE STUDY MANAGER) Complement C3 160.0 90.0 - 180.0 mg/dL Blood 02/29/2024 12:4 0 PM LIVE STUDY MANAGER 02/29/2024 1:06 PM LIVE STUDY MANAGER Result [facility] Neto Andrew MD LAB BLOOD ORDERABLES Final Result Performing Organization Address [facility] Co de Phone Number [facility] [place] [address] * (ABNORMAL) CRP (acute phase) (02/29/2024 12:40 PM LIVE STUDY MANAGER) CRP 10.4(H) <=10.0 mg/L Blood 02/29/2024 12:4 0 PM LIVE STUDY MANAGER 02/29/2024 1:06 PM LIVE STUDY MANAGER Neto Andrew MD LAB BLOOD ORDERABLES Final Result Performing Organization Address [facility] Co de Phone Number [facility] [place] [address] * Comprehensive metabolic panel (02/29/2024 12:40 PM LIVE STUDY MANAGER) Sodium 137 135 - 145 mmol/L Potassium, pl 3.8 3.3 - 4.9 mmol/L [facility] Chloride 101 97 - 110 mmol/L [facility] CO2 25 22 - 32 mmol/L [facility] Anion gap 11 2 - 15 mmol/L [facility] BUN 13 6 - 25 mg/dL [facility] Creatinine 0.75 0.60 - 1.10 mg/dL [facility] Glucose 105 70 - 199 mg/dL [facility] Comment: Interpretive Data Fasting glucose >/= 126 mg/dl is diagnostic for diabetes. Fasting is defined as no caloric intake for at least 8 hours. Fasting glucose between 100 mg/dl to 125 mg/dl is diagnostic of prediabetes. In a patient with classic symptoms of hyperglycemia or hyperglycemic crisis, a random glucose >/= 200 mg/dl is diagnostic for diabetes. In the absence of unequivocal hyperglycemia, results should be confirmed by repeat testing. The classification and Diagnosis of Diabetes Diabetes Care 2021; 46: S19-S40. Current interpretive data was last revised 2022. Calcium 9.3 8.5 - 10.3 mg/dL [facility] Bilirubin, total 0.2 0.1 - 1.2 mg/dL [facility] Protein, pl 7.5 6.5 - 8.5 g/dL [facility] Albumin 4.5 3.5 - 5.0 g/dL [facility] Alk phos 53 40 - 130 Units/L [facility] ALT 7 7 - 45 Units/L [facility] AST 17 10 - 45 Units/L [facility] Blood 02/29/2024 12:4 0 PM LIVE STUDY MANAGER 02/29/2024 1:06 PM LIVE STUDY MANAGER Neto Andrew MD LAB BLOOD ORDERABLES Final Result [facility] [place] [address] * Hepatitis C antibody Blood (11/23/2023 9:19 AM CDT) Hep C Ab Nonreactive Nonreactive Comment:Antibodies to HCV no t detected. Does NOT exclude the possibility of recent exposure to HCV. Current interpretive data was last revised on 21 Blood 11/23/2023 9:19 AM CDT 11/23/2023 11:29 AM CDT Neto Andrew MD LAB MICROBIOLOGY - GENERAL ORDERABLES Final Result [facility] [place] [address] * Diagnostic Mammogram Bilateral W Thanh (07/10/2023 10:37 AM CDT) Anatomical Region Laterality Modality Breast Bilateral Mammography 07/10/2023 10:4 3 AM CDT Impressions 07/10/2023 3:32 PM CDT The previously questioned area of architectural distortion in the upper central left breast does not persist with additional spot compression views, consistent with summation artifact. There are no findings suggestive of malignancy within EITHER breast. Patient may return to annual screening mammography. OVERALL FINAL ASSESSMENT: BI-RADS Category 1: Negative. RECOMMENDATION: Annual screening mammography is recommended. Dr. Mike Phan discussed the above findings and recommendations with the patient. Dictated by: Mike Phan M.D. The radiology attending physician has personally reviewed this study, and had reviewed and/or edited this written report and agrees with it. Electronically signed by: Karen Yuan M.D. Narrative 07/10/2023 3:32 PM CDT EXAMINATION: BILATERAL DIGITAL DIAGNOSTIC MAMMOGRAM INCLUDING CAD AND BILATERAL DIGITAL BREAST TOMOSYNTHESIS HISTORY: 42-year-old female with questionable area of architectural distortion in the upper central left breast. COMPARISON: Multiple prior mammograms, most recently 06/22/2022. Left breast ultrasound 06/22/2022. TECHNIQUE: Full field digital mammographic views of BOTH breasts were performed, including computer aided detection (CAD) and BILATERAL digital breast tomosynthesis (DBT). BREAST PARENCHYMAL COMPOSITION: There are scattered areas of fibroglandular density. MAMMOGRAM FINDINGS: The previously questioned area of architectural distortion in the upper central left breast does not persist with additional spot compression views, consistent with summation artifact. There is no mass, calcification or architectural distortion suggestive of malignancy within EITHER breast. Procedure Note Karen Yuan MD - 07/10/2023 EXAMINATION: BILATERAL DIGITAL DIAGNOSTIC MAMMOGRAM INCLUDING CAD AND BILATERAL DIGITAL BREAST TOMOSYNTHESIS HISTORY: 42-year-old female with questionable area of architectural distortion in the upper central left breast. COMPARISON: Multiple prior mammograms, most recently 06/22/2022. Left breast ultrasound 06/22/2022. TECHNIQUE: Full field digital mammographic views of BOTH breasts were performed, including computer aided detection (CAD) and BILATERAL digital breast tomosynthesis (DBT). BREAST PARENCHYMAL COMPOSITION: There are scattered areas of fibroglandular density. MAMMOGRAM FINDINGS: The previously questioned area of architectural distortion in the upper central left breast does not persist with additional spot compression views, consistent with summation artifact. There is no mass, calcification or architectural distortion suggestive of malignancy within EITHER breast. IMPRESSION: The previously questioned area of architectural distortion in the upper central left breast does not persist with additional spot compression views, consistent with summation artifact. There are no findings suggestive of malignancy within EITHER breast. Patient may return to annual screening mammography. OVERALL FINAL ASSESSMENT: BI-RADS Category 1: Negative. RECOMMENDATION: Annual screening mammography is recommended. Dr. Mike Phan discussed the above findings and recommendations with the patient. Dictated by: Mike Phan M.D. The radiology attending physician has personally reviewed this study, and had reviewed and/or edited this written report and agrees with it. Electronically signed by: Karen Yuan M.D. Reyna Atwood MD IMG MAMMO PROCEDURES Fin al Result from Last 3 Months or Most Recently Relevant to Health Maintenance Insurance [facility] [id number] [id number] [id number] Care Teams Sales Vendor Relationship Specialty Start Date End Date Roger Claudio MD [address] [place] [address] PCP - General Family Medicine 07/10/23 Reyna Atwood MD [address] [place] [address] Referring Physician Gynecology 05/13/19
--- OUTSIDE RECORDS SUMMARY | 2024-05-15 07:19 | XMS_ITS | Clinical Summary ---
Author Organization [facility] Address [address] [place] [address] Care Team Providers Care Political Researcher Name Role Phone Reyna Atwood MD Unavailable [phone] Roger Claudio MD Primary Care Provider Allergies Active Allergy Reactions Criticality Noted Date [...] Diagnosed Date Resolved Date Fibromyalgia 10/27/2013 04/24/2018 Encounters Date Type Department Care Team Description 03/03/2024 Telephone [facility] Rheumatology [facility] Medicine 5th Floor [address] [place] [id number] Neto Andrew MD 02/29/2024 3:05 PM [address] Lab [facility] Advanced [facility] ([facility]) [address] [place] [phone] Other systemic lupus erythematosus with other organ involvement (HCC) 02/29/2024 10:45 AM LOAN FUNDER Office Visit [facility] Rheumatology [address] [place] [address] [place] [address] Neto Andrew MD Sleep apnea, unspecified type (Primary Dx); Other systemic lupus erythematosus with other organ involvement (HCC) 02/29/2024 Orders Only [facility] Rheumatology [address] [place] [address] [place] [address] Neto Andrew MD Other systemic lupus erythematosus with other organ involvement (HCC) (Primary Dx) 02/29/2024 Orders Only [facility] Rheumatology [address] [place] [address] [place] [address] Anshul Lamas LPN 02/14/2024 Telephone [facility] Scheduling [facility] [place] [address] Ramone Nair MD from Last 3 Months Surgical History Surgery Date Site/Laterality Comments WISDOM TOOTH EXTRACTION wisdom teeth removed SECTION section CHOLECYSTECTOMY 2013 Cholecystectomy Medical History Medical History Date Comments Diabetes mellitus (HCC) Diabetes Asthma Asthma Migraine Primary central sleep apnea Fibromyalgia, primary Lupus Depression Family History Medical History Relation Name Comments Stroke Father Mild Aortic aneurysm Father's Brother Heart disease Maternal Grandfather Polymyositis Maternal Grandmother Stroke Maternal Grandmother Asthma Mother Allergies Other 1 Family history of Allergies; Diabetes Other 2 Family history of Diabetes mellitus; Hypertension Other 3 Family history of Hypertension; Rheum arthritis Paternal Grandfather Aortic aneurysm Paternal Grandmother Relation Name Status Comments Father Father's Brother Maternal Grandfather Maternal Grandmother Mother Other 1 Other 2 Other 3 Paternal Grandfather Paternal Grandmother Social History Tobacco Use Types Packs/Day Years Used Date Smoking Tobacco: Never Smokeless Tobacco: Never Tobacco Cessation:Counseling Given: Not Answered Alcohol Use Standard Drinks/Week Comments No 0 (1 standard drink = 0.6 oz pur e alcohol) Comments Unknown Sex and Gender Information Value Date Recorded Sex Assigned at Not on file Legal Sex Female 3:07 AM LOAN FUNDER Gender Identity Not on file Sexual Orientation Not on file 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 file Not on file Not on file Obstetrics History Last Filed Vital Signs Vital Sign Reading Time Taken Comments Blood Pressure 130/74 02/29/2024 10:59 AM LOAN FUNDER Pulse 86 02/29/2024 10:59 AM LOAN FUNDER Temperature 36.5 C (97.7 F) 02/29/2024 10:59 AM LOAN FUNDER Respiratory Rate 16 03/07/2023 3:41 PM LOAN FUNDER Oxygen Saturation 99% 03/07/2023 3:41 PM LOAN FUNDER Inhaled Oxygen Concentration - - Weight 71.7 kg (158 lb) 02/29/2024 10:59 AM LOAN FUNDER Height 172.7 cm (5' 8 ) 02/29/2024 10:59 AM LOAN FUNDER Body Mass Index 24.02 02/29/2024 10:59 AM LOAN FUNDER Plan of Treatment Health Maintenance Due Date Last Done Comments Cervical Cancer Screening 1978 Colon Cancer Screening-Colonoscopy 1978 Depression Screening 1978 Pneumococcal vaccine <65 (1 of 2 - PCV) 1984 Regular Well Visit/Exam 18-64 1996 Zoster Vaccine (1 of 2) 1997 Breast Cancer Screening-Mammogram 07/09/2024 07/10/2023, 05/04/2022, 04/04/2021, Additional history exists DTaP/Tdap/Td Vaccine (2 - Td or Tdap) 12/19/2027 12/18/2017 Hepatitis B Screening Completed 11/23/2023 Hepatitis C Screening Completed 11/23/2023, 019 Influenza Vaccine Completed 12/20/2023, , 01/05/2019, Additional history exists HPV Vaccines Aged Out No longer eligi ble based on patient's age to complete this topic Procedures Procedure Name Priority Date/Time Associated Diagnosis Comments EGFR Routine 02/29/2024 12:40 PM LOAN FUNDER Other systemic lupus erythematosus with other organ involvement (HCC) DIFFERENTIAL AUTO Routine 02/29/2024 12:40 PM LOAN FUNDER Other systemic lupus erythematosus with other organ involvement (HCC) ANTI-DOUBLE STRANDED DNA ANTIBODIES Routine 02/29/2024 12:40 PM LOAN FUNDER Other systemic lupus erythematosus with other organ involvement (HCC) C3 COMPLEMENT Routine 02/29/2024 12:40 PM LOAN FUNDER Other systemic lupus erythematosus with other organ involvement (HCC) C4 COMPLEMENT Routine 02/29/2024 12:40 PM LOAN FUNDER Other systemic lupus erythematosus with other organ involvement (HCC) CBC WITH AUTO DIFFERENTIAL Routine 02/29/2024 12:40 PM LOAN FUNDER Other systemic lupus erythematosus with other organ involvement (HCC) COMPREHENSIVE METABOLIC PANEL Routine 02/29/2024 12:40 PM LOAN FUNDER Other systemic lupus erythematosus with other organ involvement (HCC) CRP (ACUTE PHASE) Routine 02/29/2024 12:40 PM LOAN FUNDER Other systemic lupus erythematosus with other organ [...] Anti-double stranded DNA abs (02/29/2024 12:40 PM LOAN FUNDER) dsDNA Ab <1.0 <=4.0 IUnits/mL Comment: Interpretive Data Negative: < or = 4 IUnits/mL Indeterminate: 5 - 9 IUnits/mL Positive: > or = 10 IUnits/mL Current interpretive data was last revised on 2016. Blood 02/29/2024 12:4 0 PM LOAN FUNDER 02/29/2024 1:06 PM LOAN FUNDER Neto Andrew MD LAB BLOOD ORDERABLES Final Result Performing Organization Address City/[facility] Co de Phone Number [facility] [address] [address] * eGFR (02/29/2024 12:40 PM LOAN FUNDER) eGFR >90 >=60 mL/min/1. 73 m2 Comment: [...] Inclusion of Race in Diagnosing Kidney Disease, JASN 2020). The CKD-EPI equation should not be used for patients with unstable renal function and has not been validated in children and those over 70. Current interpretive data was last reviewed 2021. Blood 02/29/2024 12:4 0 PM LOAN FUNDER 02/29/2024 1:16 PM LOAN FUNDER Neto Andrew MD LAB BLOOD ORDERABLES Final Result Performing Organization Address City/[facility]/ZIP Co de Phone Number [facility] [place] [address] * Differential, auto (02/29/2024 12:40 PM LOAN FUNDER) Neutrophil abs 6.1 1.5 - 6.5 K/cumm Imm gran abs 0.0 0.0 - 0.1 K/cumm [facility] Lymphocyte abs 2.3 0.8 - 3.3 K/cumm [facility] Monocyte abs 0.6 0.2 - 0.8 K/cumm [facility] Eosinophil abs 0.1 0.0 - 0.5 K/cumm [facility] Basophil abs 0.0 0.0 - 0.1 K/cumm [facility] Neutrophil pct 66.5 % [facility] Comment: Interpretive Data Percent cell count reference ranges are not reported, since discordance with absolute values may lead to misinterpretation of CBC data. Current Interpretive Data was last revised on 2017. Imm gran pct 0.4 % [facility] Comment: Interpretive Data Percent cell count reference ranges are not reported, since discordance with absolute values may lead to misinterpretation of CBC data. Current Interpretive Data was last revised on 2017. Lymphocyte pct 25.4 % [facility] Comment: Interpretive Data Percent cell count reference ranges are not reported, since discordance with absolute values may lead to misinterpretation of CBC data. Current Interpretive Data was last revised on 2017. Monocyte pct 6.1 % [facility] Comment: Interpretive Data Percent cell count reference ranges are not reported, since discordance with absolute values may lead to misinterpretation of CBC data. Current Interpretive Data was last revised on 2017. Eosinophil pct 1.3 % [facility] Comment: Interpretive Data Percent cell count reference ranges are not reported, since discordance with absolute values may lead to misinterpretation of CBC data. Current Interpretive Data was last revised on 2017. Basophil pct 0.3 % [facility] Comment: Interpretive Data Percent cell count reference ranges are not reported, since discordance with absolute values may lead to misinterpretation of CBC data. Current Interpretive Data was last revised on 2017. Blood 02/29/2024 12:4 0 PM LOAN FUNDER 02/29/2024 1:06 PM LOAN FUNDER Neto Andrew MD LAB BLOOD ORDERABLES Final Result [facility] [place] [address] * C4 complement (02/29/2024 12:40 PM LOAN FUNDER) [facility] Complement C4 20.7 10.0 - 40.0 mg/dL Blood 02/29/2024 12:4 0 PM LOAN FUNDER 02/29/2024 1:06 PM LOAN FUNDER Neto Andrew MD LAB BLOOD ORDERABLES Final Result Performing Organization Address [facility] Co de Phone Number [facility] [place] [address] * (ABNORMAL) CBC with auto differential (02/29/2024 12:40 PM LOAN FUNDER) [facility] WBC 9.1 3.8 - 9.9 K/cumm Hgb 13.6 11.9 - 15.5 g/dL [facility] Hct 42.0 35.6 - 45.5 % [facility] Plt 334 150 - 400 K/cumm [facility] MPV 10.2 9.1 - 12.3 fL [facility] RBC 5.15 3.90 - 5.20 M/cumm [facility] MCV 81.6 81.3 - 96.4 fL [facility] MCH 26.4(L) 27.1 - 33.3 pg [facility] MCHC 32.4 32.3 - 35.7 g/dL [facility] RDW CV 12.9 11.1 - 14.9 % [facility] RDW SD 38.6 35.7 - 48.1 fL [facility] NRBC abs 0.00 0.00 - 0.01 K/cumm [facility] Blood 02/29/2024 12:4 0 PM LOAN FUNDER 02/29/2024 1:06 PM LOAN FUNDER Neto Andrew MD LAB BLOOD ORDERABLES Final Result Performing Organization Address City/[facility] Co de Phone Number [facility] [place] [address] * C3 complement (02/29/2024 12:40 PM LOAN FUNDER) [facility] Complement C3 160.0 90.0 - 180.0 mg/dL Blood 02/29/2024 12:4 0 PM LOAN FUNDER 02/29/2024 1:06 PM LOAN FUNDER Neto Andrew MD LAB BLOOD ORDERABLES Final Result Performing Organization Address [facility] de Phone Number [facility] [place] [address] * (ABNORMAL) CRP (acute phase) (02/29/2024 12:40 PM LOAN FUNDER) [facility] CRP 10.4(H) <=10.0 mg/L Blood 02/29/2024 12:4 0 PM LOAN FUNDER 02/29/2024 1:06 PM LOAN FUNDER Neto Andrew MD LAB BLOOD ORDERABLES Final Result Performing Organization Address [facility] Co de Phone Number [facility] [place] [address] * Comprehensive metabolic panel (02/29/2024 12:40 PM LOAN FUNDER) Pathologist [facility] Sodium 137 135 - 145 mmol/L Potassium, pl 3.8 3.3 - 4.9 mmol/L [facility] Chloride 101 97 - 110 mmol/L [facility] CO2 25 22 - 32 mmol/L [facility] Anion gap 11 2 - 15 mmol/L [facility] BUN 13 6 - 25 mg/dL [facility] Creatinine 0.75 0.60 - 1.10 mg/dL [facility] Glucose 105 70 - 199 mg/dL [facility] Comment: Interpretive Data Fasting glucose >/= 126 [...] classification and Diagnosis of Diabetes Diabetes Care 202; 46: S19-S40. Current interpretive data was last revised 2022. Calcium 9.3 8.5 - 10.3 mg/dL [facility] Bilirubin, total 0.2 0.1 - 1.2 mg/dL [facility] Protein, pl 7.5 6.5 - 8.5 g/dL [facility] Albumin 4.5 3.5 - 5.0 g/dL [facility] Alk phos 53 40 - 130 Units/L [facility] ALT 7 7 - 45 Units/L [facility] AST 17 10 - 45 Units/L [facility] Blood 02/29/2024 12:4 0 PM LOAN FUNDER 02/29/2024 1:06 PM LOAN FUNDER Neto Andrew MD LAB BLOOD ORDERABLES Final Result [facility] Department [place] [address] * Hepatitis C antibody Blood (11/23/2023 9:19 AM CDT) Hep C Ab Nonreactive Nonreactive Comment:Antibodies to HCV no t detected. Does NOT exclude the possibility of recent exposure to HCV. Current interpretive data was last revised on 21 Blood 11/23/2023 9:19 AM CDT 11/23/2023 11:29 AM CDT Neto Andrew MD LAB MICROBIOLOGY - GENERAL ORDERABLES Final Result [facility] Department [place] [address] * Diagnostic Mammogram Bilateral W Thanh (07/10/2023 [...] Most Recently Relevant to Health Maintenance Insurance [facility] [id number] [facility] [id number] Care Teams Political Researcher Relationship Specialty Start Date End Date Roger Claudio MD [address] [place] [address] PCP - General Family Medicine 07/10/23 Reyna Atwood MD [address] [place] [address] Referring Physician Gynecology 05/13/19
[2024-05-15 07:40] LABS: Estimated Glomerular Filt Rate > 60
== END 2024-05-15 07:15 | disposition home or self-care (01) ==
PROVIDERS: PCP Emergency Medicine; Visit Provider Emergency Medicine
DX: Z82.49 Family history of ischemic heart disease and other diseases of the circulatory system (principal)
CPT/HCPCS: 70496; Q9967